=== PATIENT | male | born 1940 | race Caucasian/White ===

== ENCOUNTER 2016-08-08 06:10 | Inpatient (IN) | payer BC, MEDICARE ==
[~2016-08-08] VITALS: Ht 180.3 cm; Wt 60.2 kg
[2016-08-08] MEDS ORDERED: ONDANSETRON 2MG/ML, 2ML IVPush ONE (06:30)
[2016-08-08] MEDS ORDERED: SODIUM CHLORIDE FLUSH 10ML SYR IVF ONE (06:30)
[2016-08-08] MEDS ORDERED: MORPHINE SULFATE 4 MG/ML, 1ML IVPush PRN ×2 (06:30→10:00)
[2016-08-08] MEDS ORDERED: ONDANSETRON 2MG/ML, 2ML ONE (06:45)
[2016-08-08] MEDS ORDERED: MORPHINE SULFATE 4 MG/ML, 1ML ONE (06:45)
[2016-08-08 07:12] LABS: BLOOD UREA NITROGEN 21 mg/dL (7-18)
[2016-08-08 07:17] LABS: IS PT STATUS REG ER OR PRE ER? YES
[2016-08-08] MEDS ORDERED: CEFTRIAXONE PMX 1GM/50ML 50 ML IV ONE (08:30)
[2016-08-08] MEDS ORDERED: SODIUM CHLORIDE 0.9% 1,000 ML IV ONE (08:32)
[2016-08-08] MEDS ORDERED: CEFTRIAXONE PMX 1GM/50ML 50 ML ONE (08:38)
[2016-08-08] MEDS ORDERED: SODIUM CHLORIDE FLUSH 10ML SYR IVF PRN (09:00)
[2016-08-08] MEDS ORDERED: BISACODYL 10 MG SUPP PR PRN (10:00)
[2016-08-08] MEDS ORDERED: POLYETHYLENE GLYCOL 17 GM PACKET PO PRN (10:00)
[2016-08-08] MEDS ORDERED: ACETAMINOPHEN 325 MG TABLET PO PRN (10:00)
[2016-08-08] MEDS ORDERED: DOCUSATE 100 MG CAPSULE PO PRN (10:00)
[2016-08-08] MEDS ORDERED: NITROGLYCERIN 0.4 MG BOTTLE (25 TABS) SL PRN (10:00)
[2016-08-08] MEDS ORDERED: ONDANSETRON 2MG/ML, 2ML IVP PRN (10:00)
[2016-08-08 11:02] LABS: IS PT STATUS REG ER OR PRE ER? YES
[2016-08-08 11:26] VITALS: BP 120/71
[2016-08-08] MEDS: SODIUM CHLORIDE 0.9% 1,000 ML IV SCH ×2 (11:44→22:52)
[2016-08-08] MEDS: CEFTRIAXONE PMX 1GM/50ML 50 ML IV SCH (11:52)
[2016-08-08] MEDS: ENOXAPARIN 40 MG/0.4 ML SQ SCH (11:52)
[2016-08-08] MEDS ORDERED: SODIUM CHLORIDE 0.9% 1,000ML IVBOLUS ONE (13:30)
[2016-08-08] MEDS ORDERED: MAGNESIUM SULFATE PMX 2GM/50ML 50 ML IV ONE (13:30)
[2016-08-08] MEDS ORDERED: POTASSIUM PHOSPHATE 44 MEQ in SODIUM CHLORIDE 0.9% 500 ML IV ONE (13:30)
[2016-08-08 16:55] VITALS: BP 100/62
[2016-08-08 17:14] LABS: IS PT STATUS REG ER OR PRE ER? NO
[2016-08-08 19:04] VITALS: BP 101/65
[2016-08-09] VITALS (8 sets, daily range): BP systolic 122–148; BP diastolic 74–87
[2016-08-09 04:58] LABS: HEMOGLOBIN 12.4 g/dL (13.7-18.0)
[2016-08-09 05:06] LABS: ASPARTATE AMINO TRANSFERASE 27 U/L (15-37); BLOOD UREA NITROGEN 17 mg/dL (7-18)
[2016-08-09] MEDS: ASPIRIN 325 MG TABLET EC PO SCH (06:42)
[2016-08-09] MEDS ORDERED: REGADENOSON 0.4 MG/5 ML SYRINGE ONE (08:23)
[2016-08-09] MEDS: ENOXAPARIN 40 MG/0.4 ML SQ SCH (10:36)
[2016-08-09] MEDS: CEFTRIAXONE PMX 1GM/50ML 50 ML IV SCH (10:36)
[2016-08-10] VITALS (10 sets, daily range): BP systolic 127–162; BP diastolic 70–88
[2016-08-10 06:01] LABS: HEMOGLOBIN 12.7 g/dL (13.7-18.0)
[2016-08-10] MEDS: ASPIRIN 325 MG TABLET EC PO SCH (06:09)
[2016-08-10 06:49] LABS: ASPARTATE AMINO TRANSFERASE 36 U/L (15-37); BLOOD UREA NITROGEN 15 mg/dL (7-18)
[2016-08-10] MEDS: ENOXAPARIN 40 MG/0.4 ML SQ SCH (10:13)
[2016-08-10] MEDS: CEFTRIAXONE PMX 1GM/50ML 50 ML IV SCH (10:13)
[2016-08-11 03:43] VITALS: BP 139/85
[2016-08-11 03:46] VITALS: BP 139/83
[2016-08-11 03:47] VITALS: BP 133/83
[2016-08-11] MEDS: ASPIRIN 325 MG TABLET EC PO SCH (05:34)
[2016-08-11 05:44] LABS: HEMOGLOBIN 13.3 g/dL (13.7-18.0)
[2016-08-11 05:59] LABS: BLOOD UREA NITROGEN 18 mg/dL (7-18)
[2016-08-11 06:03] LABS: ASPARTATE AMINO TRANSFERASE 28 U/L (15-37)
[2016-08-11] MEDS ORDERED: ASPI-515 PO (08:08)
[2016-08-11] MEDS ORDERED: DOXY100T PO (08:09)
[2016-08-11] MEDS ORDERED: CEFD300C2 PO (08:09)
[2016-08-11 08:16] VITALS: BP 125/77
[2016-08-11 08:18] VITALS: BP 147/92
[2016-08-11 08:20] VITALS: BP 152/89
[2016-08-11] MEDS ORDERED: PNEUMOCOCCAL 23 VACCINE IM-VACC ONE (09:00)
[2016-08-11] MEDS ORDERED: FLU VACC QS2016-17 (36MOS+)UP/PF 0.5 ML IM-VACC ONE (09:00)
[2016-08-11] MEDS: ENOXAPARIN 40 MG/0.4 ML SQ SCH (09:51)
[2016-08-11] MEDS: CEFTRIAXONE PMX 1GM/50ML 50 ML IV SCH (09:58)
== END 2016-08-11 13:07 | disposition home or self-care (01) | DRG 871 ==
LOC: ED 08:16 → EDIP 09:00 → 4EST 11:05 → DCLOUNGE 08-11 12:46
PROVIDERS: ADMIT Internal Medicine; ATTEND Internal Medicine
DX: A41.9 Sepsis, unspecified organism (principal); J18.9 Pneumonia, unspecified organism; E43 Unspecified severe protein-calorie malnutrition; N39.0 Urinary tract infection, site not specified; I50.30 Unspecified diastolic (congestive) heart failure; Z68.1 Body mass index [BMI] 19.9 or less, adult; G90.8 Other disorders of autonomic nervous system; E86.0 Dehydration; E83.42 Hypomagnesemia; D64.9 Anemia, unspecified; E78.5 Hyperlipidemia, unspecified; J45.909 Unspecified asthma, uncomplicated; E83.39 Other disorders of phosphorus metabolism; M21.371 Foot drop, right foot; E05.90 Thyrotoxicosis, unspecified without thyrotoxic crisis or storm; I27.2 Other secondary pulmonary hypertension; Z82.49 Family history of ischemic heart disease and other diseases of the circulatory system; Z23 Encounter for immunization
CPT/HCPCS: 36415; 70450; 71010; 78452; 80048; 80053; 80061; 81001; 82040; 83605; 83735; 83880; 84100; 84145; 84439; 84443; 84484; 85025; 87040; 87077; 87086; 90686; 90732; 93005; 93017; 93306; 93880; 95819; 96365; 96375; J0696; J1650; J2405; J2785; A9502; C9898; J3475; J7030; J7040

== ENCOUNTER 2017-01-27 08:00 | Inpatient (IN) | payer MEDICARE ==
[~2017-01-27] VITALS: Ht 180.3 cm; Wt 60.0 kg
[2017-01-27] VITALS (7 sets, daily range): BP systolic 120–137; BP diastolic 74–81
[~2017-01-27 08:00] MED LIST: ASPI-515 PO; CEFD300C37 PO; DOXY100T PO
[2017-01-27 08:19] LABS: HEMATOCRIT 40.9 % (39.2-51.8); HEMOGLOBIN 13.7 g/dL (13.7-18.0); WHITE BLOOD COUNT 8.1 x10^3/uL (3.4-10)
[2017-01-27] MEDS ORDERED: SODIUM CHLORIDE FLUSH 10ML SYR IVF ONE ×2 (08:30→11:00)
[2017-01-27 08:32] LABS: ASPARTATE AMINO TRANSFERASE 20 U/L (15-37); BLOOD UREA NITROGEN 15 mg/dL (7-18)
[2017-01-27 08:38] LABS: IS PT STATUS REG ER OR PRE ER? YES
[2017-01-27] MEDS ORDERED: CEFTRIAXONE PMX 1GM/50ML 50 ML IVPB ONE (09:30)
[2017-01-27] MEDS: SODIUM CHLORIDE 0.9% 1,000 ML IV SCH ×2 (09:53→20:09)
[2017-01-27] MEDS ORDERED: SODIUM CHLORIDE 0.9% 1,000ML IVBOLUS ONE (10:00)
[2017-01-27] MEDS ORDERED: POLYETHYLENE GLYCOL 17 GM PACKET PO PRN (10:00)
[2017-01-27] MEDS ORDERED: AZITHROMYCIN 500 MG in SODIUM CHLORIDE 0.9% 250 ML IVPB ONE (10:00)
[2017-01-27] MEDS ORDERED: HYDROcodone/APAP 5/325 TABLET PO PRN (10:00)
[2017-01-27] MEDS ORDERED: ONDANSETRON ODT 4 MG PO PRN (10:00)
[2017-01-27] MEDS ORDERED: LABETALOL 5MG/ML, 20ML IVPush PRN (10:00)
[2017-01-27] MEDS ORDERED: ENOXAPARIN 30 MG/0.3 ML SQ SCH (10:00)
[2017-01-27] MEDS ORDERED: ENALAPRILAT 1.25 MG/ML, 2ML IVPush PRN (10:00)
[2017-01-27] MEDS ORDERED: ONDANSETRON 2MG/ML, 2ML IVPush PRN (10:00)
[2017-01-27] MEDS: CEFTRIAXONE PMX 1GM/50ML 50 ML IV SCH (11:30)
[2017-01-27] MEDS: DOXYCYCLINE 100MG TABLET PO SCH ×2 (13:20→20:09)
[2017-01-27 14:15] LABS: IS PT STATUS REG ER OR PRE ER? NO
[2017-01-27 19:58] LABS: IS PT STATUS REG ER OR PRE ER? NO
[2017-01-28 01:42] VITALS: BP_SYST 115; BP_SYST 116; BP_SYST 118; BP_DIAS 68; BP_DIAS 79; BP_DIAS 82
[2017-01-28 06:10] LABS: ASPARTATE AMINO TRANSFERASE 25 U/L (15-37); BLOOD UREA NITROGEN 15 mg/dL (7-18)
[2017-01-28 06:11] LABS: IS PT STATUS REG ER OR PRE ER? NO
[2017-01-28] MEDS: SODIUM CHLORIDE 0.9% 1,000 ML IV SCH (06:29)
[2017-01-28 06:40] VITALS: BP_SYST 124; BP_SYST 131; BP_SYST 140; BP_DIAS 77; BP_DIAS 85; BP_DIAS 89
[2017-01-28] MEDS: SENNA/DOCUSATE TABLET PO SCH (08:23)
[2017-01-28] MEDS: DOXYCYCLINE 100MG TABLET PO SCH ×2 (08:23→20:26)
[2017-01-28] MEDS: ASPIRIN 81 MG TABLET EC PO SCH (08:23)
[2017-01-28] MEDS: GUAIFENESIN/DM 200-20MG, 10ML UDC PO PRN ×2 (09:53→20:26)
[2017-01-28] MEDS: CEFTRIAXONE PMX 1GM/50ML 50 ML IV SCH (11:57)
[2017-01-28 13:32] VITALS: BP_SYST 121; BP_SYST 131; BP_SYST 146; BP_DIAS 73; BP_DIAS 74; BP_DIAS 85
[2017-01-28] MEDS: ENOXAPARIN 40 MG/0.4 ML SQ SCH (13:52)
[2017-01-28 20:21] VITALS: BP 137/68
[2017-01-29 01:40] VITALS: BP 117/72
[2017-01-29 05:04] LABS: HEMATOCRIT 39.7 % (39.2-51.8); HEMOGLOBIN 13.5 g/dL (13.7-18.0)
[2017-01-29 05:08] LABS: ASPARTATE AMINO TRANSFERASE 20 U/L (15-37); BLOOD UREA NITROGEN 21 mg/dL (7-18)
[2017-01-29 08:35] VITALS: BP 136/83
[2017-01-29] MEDS: DOXYCYCLINE 100MG TABLET PO SCH ×2 (08:35→21:07)
[2017-01-29] MEDS: ASPIRIN 81 MG TABLET EC PO SCH (08:35)
[2017-01-29] MEDS: SENNA/DOCUSATE TABLET PO SCH (08:36)
[2017-01-29] MEDS ORDERED: LORazepam 2 MG/ML, 1ML IVPush PRN (11:00)
[2017-01-29] MEDS: GUAIFENESIN/DM 200-20MG, 10ML UDC PO PRN (11:34)
[2017-01-29] MEDS: CEFTRIAXONE PMX 1GM/50ML 50 ML IV SCH (11:34)
[2017-01-29] MEDS ORDERED: GADOBUTROL 7.5 MMOL/7.5 ML VIAL ONE (13:54)
[2017-01-29 14:01] VITALS: BP 120/75
[2017-01-29] MEDS: METOPROLOL TARTRATE 25 MG TABLET PO SCH ×2 (14:02→16:12)
[2017-01-29] MEDS: ENOXAPARIN 40 MG/0.4 ML SQ SCH (14:02)
[2017-01-29 21:04] VITALS: BP 103/65
[2017-01-30 02:32] VITALS: BP 108/71
[2017-01-30 06:07] LABS: HEMATOCRIT 39.5 % (39.2-51.8); HEMOGLOBIN 13.4 g/dL (13.7-18.0); WHITE BLOOD COUNT 5.5 x10^3/uL (3.4-10)
[2017-01-30 06:19] LABS: ASPARTATE AMINO TRANSFERASE 23 U/L (15-37); BLOOD UREA NITROGEN 19 mg/dL (7-18)
[2017-01-30] MEDS: METOPROLOL TARTRATE 25 MG TABLET PO SCH ×2 (06:25→17:15)
[2017-01-30 07:47] VITALS: BP 118/62
[2017-01-30] MEDS: ASPIRIN 81 MG TABLET EC PO SCH (08:56)
[2017-01-30] MEDS: SENNA/DOCUSATE TABLET PO SCH (08:56)
[2017-01-30] MEDS: DOXYCYCLINE 100MG TABLET PO SCH ×2 (08:57→20:50)
[2017-01-30] MEDS: GUAIFENESIN/DM 200-20MG, 10ML UDC PO PRN ×2 (11:24→20:50)
[2017-01-30] MEDS: CEFTRIAXONE PMX 1GM/50ML 50 ML IV SCH (11:24)
[2017-01-30 13:22] VITALS: BP 113/70
[2017-01-30] MEDS: ENOXAPARIN 40 MG/0.4 ML SQ SCH (14:59)
[2017-01-30 17:12] VITALS: BP 119/71
[2017-01-30 21:28] VITALS: BP 125/76
[2017-01-31 01:53] VITALS: BP 123/65
[2017-01-31] MEDS: METOPROLOL TARTRATE 25 MG TABLET PO SCH (05:08)
[2017-01-31 06:02] LABS: HEMATOCRIT 39.9 % (39.2-51.8); HEMOGLOBIN 13.5 g/dL (13.7-18.0); WHITE BLOOD COUNT 7.2 x10^3/uL (3.4-10)
[2017-01-31 06:11] LABS: BLOOD UREA NITROGEN 18 mg/dL (7-18)
[2017-01-31 06:15] LABS: ASPARTATE AMINO TRANSFERASE 19 U/L (15-37)
[2017-01-31] MEDS ORDERED: METO25TA35 PO (06:54)
[2017-01-31] MEDS ORDERED: DOXY100T PO (06:54)
[2017-01-31] MEDS ORDERED: CEFD300C37 PO (06:54)
[2017-01-31] MEDS ORDERED: ASPI-621 PO (06:54)
[2017-01-31 07:53] VITALS: BP 102/65
[2017-01-31] MEDS: SENNA/DOCUSATE TABLET PO SCH (09:39)
[2017-01-31] MEDS: DOXYCYCLINE 100MG TABLET PO SCH (09:39)
[2017-01-31] MEDS: ASPIRIN 81 MG TABLET EC PO SCH (09:39)
[2017-01-31] MEDS: CEFTRIAXONE PMX 1GM/50ML 50 ML IV SCH (09:40)
== END 2017-01-31 12:47 | disposition home or self-care (01) | DRG 194 ==
LOC: ED 08:36 → EDIP 09:42 → 5SO 10:59 → DCLOUNGE 01-31 11:50
PROVIDERS: ADMIT Hospitalist; ATTEND Hospitalist
DX: J18.9 Pneumonia, unspecified organism (principal); I50.32 Chronic diastolic (congestive) heart failure; I27.2 Other secondary pulmonary hypertension; I47.1 Supraventricular tachycardia; J98.11 Atelectasis; R55 Syncope and collapse; E03.9 Hypothyroidism, unspecified; E78.5 Hyperlipidemia, unspecified; J45.909 Unspecified asthma, uncomplicated; M21.371 Foot drop, right foot; Z82.49 Family history of ischemic heart disease and other diseases of the circulatory system
CPT/HCPCS: 36415; 70553; 71010; 80053; 80061; 81003; 83605; 83690; 83735; 83880; 84145; 84443; 84484; 85025; 85379; 85610; 85730; 87040; 93005; 93306; 95819; 96365; A9585; J0456; J0696; J1650; J7030; J7050

== ENCOUNTER → 2017-11-30 | Outpatient (CLI) | payer MEDICARE ==
[~2017-11-30] MED LIST changes: +ASPI-621 PO; +ENOX40SY4 SQ; +METO25TA35 PO
== END | disposition home or self-care (01) ==
LOC: CFH 08:02
PROVIDERS: ATTEND Internal Medicine Cardiovascular Disease
DX: I50.30 Unspecified diastolic (congestive) heart failure (principal); I25.10 Atherosclerotic heart disease of native coronary artery without angina pectoris; J45.909 Unspecified asthma, uncomplicated; Z79.82 Long term (current) use of aspirin; I27.29 Other secondary pulmonary hypertension
CPT/HCPCS: 75571

== ENCOUNTER 2017-12-04 22:31 | Emergency (ER) | payer MEDICARE ==
[~2017-12-04] VITALS: Ht 175.3 cm; Wt 63.0 kg
[2017-12-04 23:39] LABS: BASOPHILS # (AUTO) 0.01 x10^3/uL (0-0.1); BASOPHILS % (AUTO) 0 % (0-1); EOSINOPHILS % (AUTO) 3 % (1-7); LYMPHOCYTES # (AUTO) 1.19 x10^3/uL (1-3.4); LYMPHOCYTES % (AUTO) 10 % (22-44); MD NO; MEAN CORPUSCULAR HEMOGLOBIN 31.5 pg (27.5-34.5); MEAN CORPUSCULAR HGB CONC 34.1 g/dL (33.2-36.2); MEAN CORPUSCULAR VOLUME 92.5 fL (81-97); MONOCYTES # (AUTO) 0.58 x10^3/uL (0.2-0.8); MONOCYTES % (AUTO) 5 % (2-9); NEUTROPHILS # (AUTO) 10.01 x10^3/uL (1.8-6.8); NEUTROPHILS % (AUTO) 83 % (42-75); PLATELET COUNT 266 x10^3/uL (130-400); RED BLOOD COUNT 4.32 x10^6/uL (4.38-5.82); RED CELL DISTRIBUTION WIDTH 14.7 % (9.4-14.8)
[2017-12-04 23:52] LABS: ALANINE AMINOTRANSFERASE 19 U/L (12-78); ALBUMIN 3.6 g/dL (3.4-5.0); ANION GAP 5 mmol/L (5-15); CALCIUM 9.4 mg/dL (8.5-10.1); CHLORIDE 108 mmol/L (98-107); CREATININE 1.01 mg/dL (0.7-1.3)
[2017-12-04 23:55] LABS: ALKALINE PHOSPHATASE 71 U/L (45-117); BILIRUBIN,TOTAL 0.6 mg/dL (0.2-1.0); TOTAL PROTEIN 6.9 g/dL (6.4-8.2)
[2017-12-04 23:57] VITALS: BP 128/84
== END 2017-12-05 00:29 | disposition home or self-care (01) ==
LOC: ED 23:59
DX: R19.7 Diarrhea, unspecified (principal)
CPT/HCPCS: 36415; 80053; 83690; 85025; 99284